=== PATIENT | male | born 1965 | race Caucasian/White ===

== ENCOUNTER 2019-09-08 13:15 | Emergency (ER) | payer OTHER ==
[~2019-09-08] VITALS: Ht 175.3 cm; Wt 90.7 kg
[~2019-09-08 13:15] MED LIST: BAYER CHEWABLE81 MG PO; HYDROXYZINE HCL25 MG PO; LIPITOR40 MG PO; METFORMIN HCL1000 MG PO; TRAZODONE HCL100 MG PO; VICTOZA 2-0.6 MG/0.1 SUB-Q
--- OUTSIDE RECORDS SUMMARY | 2019-09-08 13:18 | XMS ---
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 E.D. VISIT COUNT ([address] [facility] [place] 2 [facility] [place] TOTAL 3 NOTE: Visits indicate total known visits. 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 [place] TYPE: Emergency DIAGNOSES: - Chest pain, unspecified - Chest pain INPATIENT VISIT TRACKING (12 MO.) No inpatient visits to display in this time frame [email or web address]
[2019-09-08] MEDS ORDERED: CIALIS20 MG PO (13:57)
--- NOTE | 2019-09-08 20:40 | EKG ---
[facility] [address] [place], [place] [address] Signed Normal sinus rhythm Right bundle branch block Inferior infarct , age undetermined Abnormal ECG No previous ECGs available Confirmed by DIANE MULLINS DO ([id number]) on 09/08/2019 8:39:58 PM Electronically Signed By: DIANE MULLINS DO 09/08/192039 PATIENT NAME: LESA QUEEN BARAK Electrocardiogram DATE OF : 61 PHYSICIAN: DIANE MULLINS DO REPORT #: [id number] REPORT IS CONFIDENTIAL AND NOT TO BE RELEASED WITHOUT AUTHORIZATION
== END 2019-09-08 14:50 | disposition left against medical advice (07) ==
LOC: ED 13:15
DX: R07.9 Chest pain, unspecified (principal); E11.9 Type 2 diabetes mellitus without complications; I25.2 Old myocardial infarction; F17.200 Nicotine dependence, unspecified, uncomplicated; E78.00 Pure hypercholesterolemia, unspecified; Z79.899 Other long term (current) drug therapy
CPT/HCPCS: 71046; 80053; 83735; 84484; 85025; 93005; 93010; 99285-25

== ENCOUNTER 2021-01-19 18:14 | Emergency (ER) | payer OTHER ==
[~2021-01-19] VITALS: Ht 175.3 cm; Wt 90.7 kg
[~2021-01-19 18:14] MED LIST changes: +CIALIS20 MG PO
--- NOTE | 2021-01-19 21:00 | EKG ---
[facility] [address] [facility] [place], [place] [address] Signed Normal sinus rhythm Right bundle branch block Inferior infarct (cited on or before 08-SEP-2019) Abnormal ECG When compared with ECG of 08-SEP-2019 13:23, No significant change was found Confirmed by LETITIA TRIVEDI MD ([id number]) on 01/19/2021 9:00:09 PM Electronically Signed By: LETITIA TRIVEDI MD 01/19/21 2100 PATIENT NAME: QUEENLESA Electrocardiogram DATE OF : 61 PHYSICIAN: LETITIA TRIVEDI MD REPORT #: [id number] REPORT IS CONFIDENTIAL AND NOT TO BE RELEASED WITHOUT AUTHORIZATION
[2021-01-19] MEDS ORDERED: CEPHALEXIN500 MG PO (21:15)
== END 2021-01-19 21:28 | disposition home or self-care (01) ==
LOC: ED 18:14
DX: S61.512A Laceration without foreign body of left wrist, initial encounter (principal); S51.812A Laceration without foreign body of left forearm, initial encounter; F10.129 Alcohol abuse with intoxication, unspecified; E87.6 Hypokalemia; Z20.822 Contact with and (suspected) exposure to COVID-19; X78.1XXA Intentional self-harm by knife, initial encounter; E11.9 Type 2 diabetes mellitus without complications; E78.00 Pure hypercholesterolemia, unspecified; F17.200 Nicotine dependence, unspecified, uncomplicated; Z88.8 Allergy status to other drugs, medicaments and biological substances; Z79.899 Other long term (current) drug therapy; Z79.84 Long term (current) use of oral hypoglycemic drugs; Z79.82 Long term (current) use of aspirin
CPT/HCPCS: 12004; 51701; 71045; 73090; 80053; 81001; 82553; 83690; 83735; 84443; 84484; 85025; 90471; 90715; 93005; 93010; 99285-25; C9803; G0480; J2405; J7030; U0003